=== PATIENT | male | born 1990 | race Caucasian/White ===

== ENCOUNTER 2023-03-06 11:56 | Emergency (ER) | payer OTHER, SELFPAY ==
[2023-03-06 12:00] VITALS: BP 151/93; PULSE 95; RESP 18; TEMP 37; O2SAT 98
--- NOTE | 2023-03-06 12:11 | ED_ITS ---
HPI - Chest Pain General: Chief Complaint: Chest Pain Stated Complaint: Abnormal EKG Time Seen by Provider: 03/06/23 12:11 History of Present Illness: Mr Santos is a 32-year-old gentleman with history of tobaccoism presenting to the emergency department for concern over chest pain. Reports subacute onset of symptoms approximately 2 days ago without known specific provoking event. Since that time has had constant though varying intensity of symptoms. Substernal varying between aching and sharp. Moderate to severe in intensity. Worse with exertion. No other specific changes in health, exacerbating, or alleviating factors identified. Patient was seen at urgent care and abnormal EKG was identified, referred to the ER for further evaluation Onset (ago): day(s) Timing of current episode: constant Prior episodes: No Onset: during rest Pain location: substernal Pain radiation: none Severity: moderate Quality: aching and sharp Relieving factors: rest Exacerbating factors: exertion Associated symptoms: Reports dyspnea Review of Systems General: Reports: 10 or more systems reviewed and unremarkable except in HPI and below Resp: Reports: dyspnea PFSH ED PFSH: Medical History (Updated 03/06/23 @ 15:09 by Adolfo Olmedo MD) No significant past medical history Surgical History (Updated 03/06/23 @ 12:30 by Adolfo Olmedo MD) No significant past surgical history Social History (Updated 03/06/23 @ 12:30 by Adolfo Olmedo MD) Smoking and tobacco status: current every day smoker Physical Exam Const: COMMON NORMALS: alert GENERAL APPEARANCE: cooperative and well developed HENMT: COMMON NORMALS: normocephalic and atraumatic HEAD & SCALP: normocephalic and atraumatic Eye: COMMON NORMALS: conjunctivae normal CONJUNCTIVA: Yes conjunctivae normal SCLERA: sclerae normal Neck/C-Spine: COMMON NORMALS: supple GENERAL: Yes trachea midline Resp: COMMON NORMALS: clear to auscultation bilaterally EFFORT & INSPECTION: Yes able to speak in complete sentences AUSCULTATION: clear to auscultation bilaterally Cardio: COMMON NORMALS: regular rate and regular rhythm RATE: regular rate RHYTHM: regular rhythm GI: COMMON NORMALS: Soft to palpation PALPATION: Yes Soft to palpation and No Tenderness to palpation present (GI) Extremity: GENERAL: Yes normal exam except as noted and No edema Neuro: COMMON NORMALS: moves all extremities SENSORIUM/ORIENTATION: Yes alert and No Orientation impaired Psych: COMMON NORMALS: mental status grossly normal and Normal thought process present THOUGHT PROCESS: Normal thought process present Course Vital Signs: Vital signs: Vital Signs Temperature 98.6 F 03/06/23 12:00 Pulse Rate 74 03/06/23 15:32 Respiratory Rate 18 03/06/23 12:00 Blood Pressure 129/92 03/06/23 14:34 Pulse Oximetry 98 03/06/23 15:32 Oxygen Delivery Me thod Room Air 03/06/23 12:00 MDM - Chest Pain Medical Decision Making 32-year-old gentleman presenting to the emergency room for evaluation of abnormal EKG with chest discomfort. Exam as above. Patient is nontoxic. EKG demonstrate sinus rhythm with normal axis and intervals, evidence of possible LVH and nonspecific ST segment abnormalities possibly benign early repolarization. No STEMI. Labs notable for no leukocytosis, hemoconcentration is present., Metabolic panel consistent with dehydration. T. bili elevated of unclear etiology but no right upper quadrant symptoms or tenderness to palpation. Chest x-ray demonstrates no lobar consolidation or pneumothorax. Patient proved with IV fluids, analgesia, GI cocktail, also treated with aspirin during ED course. Most of etiology of patient symptoms is unclear, he is low risk by heart score, some symptoms may be related to bronchitis and dehydration. The results of ED evaluation were discussed with the patient including prescriptions and/or symptomatic cares (if applicable) including appropriate and responsible use, followup plan, and return precautions. The patient verbalized understanding and felt safe for discharge. Medical Records I reviewed the patient's medical records. Lab Data I reviewed the patient's lab results. 03/06/23 13:20 03/06/23 13:20 Radiology Impressions Chest X-Ray 03/06/23 12:24 IMPRESSION: No acute findings. Laboratory Results WBC 7.4 10^3/uL (4.0-10.0) 03/06/23 13:20 RBC 5.59 10^6/uL (4.1-5.3) H 03/06/23 13:20 Hgb 19.0 g/dL (11.7-16.6) H 03/06/23 13:20 Hct 54.5 % (42.0-52.0) H 03/06/23 13:20 MCV 97.5 fl (80-94) H 03/06/23 13:20 MCH 34.0 pg (28.0-34.0) 03/06/23 13:20 MCHC 34.9 g/dL (30.0-36.0) 03/06/23 13:20 RDW 13.4 % (12.1-15.1) 03/06/23 13:20 Plt Count 184 10^3/cmm (130-400) 03/06/23 13:20 MPV 10.1 fL (7.4-10.4) 03/06/23 13:20 Neut % (Auto) 65.1 % 03/06/23 13:20 Lymph % (Auto) 22.7 % 03/06/23 13:20 Gu[place]upe % (Auto) 9.9 % 03/06/23 13:20 Eos % (Auto) 1.4 % 03/06/23 13:20 Baso % (Auto) 0.8 % 03/06/23 13:20 Neut # (Auto) 4.82 10^3/uL (1.8-7.7) 03/06/23 13:20 Lymph # (Auto) 1.7 10^3/uL (0.8-4.8) 03/06/23 13:20 [place]upe # (Auto) 0.7 10^3/uL (0.2-0.9) 03/06/23 13:20 Eos # (Auto) 0.1 10^3/uL (0.0-0.8) 03/06/23 13:20 Baso # (Auto) 0.1 10^3/uL (0.0-0.1) 03/06/23 13:20 Nucleated RBC % (auto) 0 % 03/06/23 13:20 Nucleated RBCs # 0.0 /100WBC 03/06/23 13:20 Sodium 134 mmol/L (136-145) L 03/06/23 13:20 Potassium 4.0 mmol/L (3.5-5.1) 03/06/23 13:20 Chloride 95 mmol/L (98-107) L 03/06/23 13:20 Carbon Dioxide 26 mmol/L (22-29) 03/06/23 13:20 Anion Gap 17.0 (5-19) 03/06/23 13:20 BUN 7 mg/dL (6-20) 03/06/23 13:20 Creatinine 0.6 mg/dL (0.7-1.2) L 03/06/23 13:20 GFR Calculation 155.2 mL/min (90-130) H 03/06/23 13:20 Glucose 88 mg/dL (65-115) 03/06/23 13:20 Calculated Osmolality 275 mOsm/kg (285-295) L 03/06/23 13:20 Calcium 9.3 mg/dL (8.5-10.5) 03/06/23 13:20 Total Bilirubin 1.5 mg/dL (0.15-1.2) H 03/06/23 13:20 AST 26 U/L (0-40) 03/06/23 13:20 ALT 18 U/L (0-41) 03/06/23 13:20 Alkaline Phosphatase 124 U/L (40-130) 03/06/23 13:20 Troponin T Baseline 6 ng/L (0-15) 03/06/23 13:20 NT-Pro-B Natriuret Pep 36 pg/mL (0-125) 03/06/23 13:20 Total Protein 7.1 g/dL (6.6-8.7) 03/06/23 13:20 Albumin 4.4 g/dL (3.5-5.2) 03/06/23 13:20 Globulin 2.7 g/dL (1.3-4.6) 03/06/23 13:20 Lipase 20 U/L (13-60) 03/06/23 13:20 Discharge Plan Discharge Patient Disposition: Home Clinical Impression: Chest pain, Dehydration, Bronchitis Condition: Stable Prescriptions: New doxycycline hyclate 100 mg capsule 100 mg PO BID 10 Days Qty: 20 0RF prednisone 50 mg tablet 50 mg PO DAILY 5 Days Qty: 5 0RF albuterol sulfate 90 mcg/actuation HFA aerosol inhaler 2 inh inhalation Q4H PRN (Reason: shortness of breath or wheezing) Qty: 8.5 0RF Discharge Orders: Discharge ED (Routine); Ordered 03/06/23 Ordered By: Adolfo Olmedo Discharge Diet: Usual diet Discharge Activity: Increase activity as tolerated Patient Instructions: Chest Pain (ED), Dehydration (ED), Acute Bronchitis (ED) Activity Restrictions/Additional Instructions: Thank you for visiting the emergency department. You were seen and evaluated for chest pain. The exact cause your symptoms is unclear however based on ED evaluation does not appear to need hospitalization at this time. You are low risk for major adverse cardiac events. Some of your symptoms may be caused by bronchitis. I will prescribe steroids and antibiotics. Please also use your albuterol metered-dose inhaler 2 puffs every 4 hours for 24 hours followed by 2 puffs every 6 hours for 24 hours followed by 2 puffs every 8 hours for 24 hours and then return to the normal schedule. Please follow-up with a primary care provider. Return to the emergency department for anything that you are concerned about and feel needs emergency department evaluation. Coding Level of Care Code ED Purse Seining Hand for Sonal Serrano
--- NOTE | 2023-03-06 12:24 | XRR_ITS ---
PROCEDURE INFORMATION: Exam: XR Chest Exam date and time: 03/06/2023 12:42 PM Age: 32 years old Clinical indication: Abnormal findings; Abnormal ekg; Additional info: Cp TECHNIQUE: Imaging protocol: Radiologic exam of the chest. Views: 1 view. COMPARISON: No relevant prior studies available. FINDINGS: Lungs: Unremarkable. No consolidation. Pleural spaces: Unremarkable. No pleural effusion. No pneumothorax. Heart/Mediastinum: Unremarkable. No cardiomegaly. Bones/joints: Unremarkable. XR/XR chest 1V portable [id number] IMPRESSION: No acute findings.
[2023-03-06 13:37] LABS: Basophils # 0.1 10^3/uL (0.0-0.1); Basophils % 0.8 %; Eosinophils # 0.1 10^3/uL (0.0-0.8); Eosinophils % 1.4 %; Hematocrit 54.5 % (42.0-52.0); Lymphocytes # 1.7 10^3/uL (0.8-4.8); Lymphocytes % 22.7 %; Mean Corpuscular HGB Conc 34.9 g/dL (30.0-36.0); Mean Corpuscular Volume 97.5 fl (80-94); Mean Platelet Volume 10.1 fL (7.4-10.4); Monocytes # 0.7 10^3/uL (0.2-0.9); Monocytes % 9.9 %; Neutrophils # 4.82 10^3/uL (1.8-7.7); Neutrophils % 65.1 %; Nucleated Red Blood Cells % 0 %; Platelet Count 184 10^3/cmm (130-400); Red Blood Count 5.59 10^6/uL (4.1-5.3); Red Cell Distribution Width 13.4 % (12.1-15.1); White Blood Count 7.4 10^3/uL (4.0-10.0)
[2023-03-06 13:58] LABS: Troponin(5th) Baseline 6 ng/L (0-15)
[2023-03-06] MEDS: sodium chloride 0.9% 1,000 ML 999 ML IV (14:01)
[2023-03-06] MEDS: aspirin 81 mg Chew Tablet 324 MG PO (14:01)
[2023-03-06 14:05] LABS: Alanine Aminotransferase 18 U/L (0-41); Albumin Level 4.4 g/dL (3.5-5.2); Alkaline Phosphatase 124 U/L (40-130); Aspartate Amino Transferase 26 U/L (0-40); Blood Urea Nitrogen 7 mg/dL (6-20); Calcium 9.3 mg/dL (8.5-10.5); Carbon Dioxide 26 mmol/L (22-29); Chloride 95 mmol/L (98-107); Globulin 2.7 g/dL (1.3-4.6); Glomerular Filtration Rate 155.2 mL/min (90-130); Glucose 88 mg/dL (65-115); Lipase 20 U/L (13-60); NT Pro B Type Natriuretic Pept 36 pg/mL (0-125); Osmolality Calculated 275 mOsm/kg (285-295); Sodium 134 mmol/L (136-145); Total Bilirubin 1.5 mg/dL (0.15-1.2); Total Protein 7.1 g/dL (6.6-8.7)
--- NOTE | 2023-03-06 14:25 | ECG_ITS ---
[facility] Test Date: 2023-03-06 Pat Name: Isidoro Santos Department: Room: Gender: Male Addiction Nurse: : [id number] Requested By: Adolfo Olmedo Order Number: [id number] Quan MD: Ramos Archer M.D. Measurements Intervals [place] Rate: 74 P: 78 FL: 181 QRS: 69 QRSD: 101 T: 70 QT: 385 QTc: 429 Interpretive Statements SINUS RHYTHM POSSIBLE RIGHT VENTRICULAR CONDUCTION DELAY [RSR (QR) IN V1/V2] EARLY REPOLARIZATION [ST ELEVATION WITH NORMALLY INFLECTED T-WAVE] No previous ECG available for comparison Electronically Signed On 03-06-2023 16:59:32 CDT by Ramos Archer M.D. [id number]
[2023-03-06] MEDS: lidocaine 2% viscous 15 ML, aluminum-mag hydrox-simethicon 30 ML, sucralfate oral liq 1 GM PO (14:29)
[2023-03-06] MEDS: ketorolac 30 mg/mL INJ 15 MG IVP (14:30)
[2023-03-06 14:34] VITALS: BP 129/92; PULSE 73; O2SAT 99
[2023-03-06 14:45] VITALS: PULSE 73; O2SAT 100
[2023-03-06 15:00] VITALS: PULSE 81; O2SAT 99
[2023-03-06 15:15] VITALS: PULSE 74; O2SAT 98
[2023-03-06 15:32] VITALS: PULSE 74; O2SAT 98
--- NOTE | 2023-03-15 13:15 | DCPLANNER ---
veterinary manager called patient due to no primary care physician - patient does not live here
== END 2023-03-06 15:34 | disposition home or self-care (01) ==
PROVIDERS: Emergency Provider Emergency Medicine
DX: R07.9 Chest pain, unspecified (principal); J40 Bronchitis, not specified as acute or chronic; E86.0 Dehydration; F17.210 Nicotine dependence, cigarettes, uncomplicated
CPT/HCPCS: 71045; 80053; 83690; 83880; 84484; 85025; 93005; 96374; 99285; J1885; J7030